=== PATIENT | female | born 1970 | race Caucasian/White ===

== ENCOUNTER → 2019-09-14 | Outpatient (CLI) | payer OTHER ==
[~2019-09-14] MED LIST: ACET500 PO; ALBU90OI; ALBU90OI INH; ALPR1; ALPR1 PO; AMIT50; AMLO10 PO; ARIP10; ARIP10 PO; AZIT250 PO; BELPHEER; BUPR75; CHLO10 PO; CLON.1; CLON.1 PO; CODGUAEL PO; CRUTCH4 USE; Crutch1 EACH MISC; DICY20; DIPATR; DULO30 PO; DULO60; DULO60 PO; ESCI10; ESCI20; ESCI20 PO; ESTR.625; ESTR.9 PO; ESTRADIOL PO; FISH1000 PO; FLUO20; FURO20; GABA300; GLYCOLAX; HYDACE10B; HYDACE10B PO; HYDACE5; HYDACE5 PO; HYDACE5325; HYDACE5325 PO; HYOS.125 SL; IBUP800 PO; LOPE2C; LORA1; LORA1 PO; MARIJUANA INH; METO25ER PO; METO5A; MORP15ER; O; ONDA4; ONDA4ODT MM; ONDA8 PO; ONDA8ODT MM; OXYACE10; OXYACE5T PO; OXYACE7.5T PO; OXYC20ER; OXYC20ER PO; PARO20 PO; PHENA100 PO; PHENA200 PO; POTASSIUM PO; PROC10; PROC5; PROC5 PO; PROM25; PROM25 PO; PROM50S; Percocet 5-3251 EACH PO; QUET200 PO; QUET25 PO; QUET300 PO; RANI150; RXHYDACE PO; TRAM50; TRAM50 PO; TRIHYD253B; TRIHYD253B PO; Zofran Odt4 MG SL; [UNRECOGNIZED DRUG - OTHER] PO; [UNRECOGNIZED DRUG - REMARK]
[2019-09-18 14:11] LABS: HPV 16 Negative (Negative); HPV 18 Negative (Negative); HPV OTHER HR TYPES Negative (Negative)
== END | disposition home or self-care (01) ==
LOC: LAB 10:40 → LAB SHORT 10:40
PROVIDERS: Obstetrics & Gynecology
DX: Z01.419 Encounter for gynecological examination (general) (routine) without abnormal findings (principal)
CPT/HCPCS: 87624; G0123

== ENCOUNTER 2022-04-20 08:33 | Day surgery (SDC) | payer OTHER ==
[~2022-04-20] VITALS: Ht 170.2 cm; Wt 107.6 kg
[2022-04-20] MEDS ORDERED: CEPH500 PO (09:21)
--- NOTE | 2022-04-20 09:40 | NUR ---
Ambulatory in Day Surgery History, Chart, Medications and Allergies reviewed before start of procedure.Patient confirms NPO status and agrees with scheduled surgery. Patient states colon prep results clear.PT STATES SHE THREW UP THROUGHOUT HER PREP.TOLERATED THE 0200 DOSE OF PREP. Lungs clear T/O to Auscultation. Patient States Post-Procedure ride home has been arranged WITH DAUGHTER.
--- NOTE | 2022-04-20 10:07 | NUR ---
04/20/22 [place] Wall HISTORY, CHART, MEDICATIONS AND ALLERGIES REVIEWED BEFORE START OF PROCEDURE. PATIENT CONFIRMS NPO STATUS AND AGREES WITH SCHEDULED PROCEDURE. 3-LEAD EKG REVIEWED WITH PHYSICIAN PRIOR TO START OF PROCEDURE. MONITOR INTACT WITH CONTINUOUS PULSE OXIMETRY,CAPNOGRAPHY, 3-LEAD EKG, INTERMITTENT BP. SUPPLEMENTAL O2 TO BE TITRATED THROUGHOUT PROCEDURE TO MAINTAIN O2 SATURATION ABOVE 90%. PATIENT DETERMINED TO BE ASA APPROPRIATE FOR PROPOFOL SEDATION PRIOR TO START OF PROCEDURE BY DR. BOWMAN.
== END 2022-04-20 23:31 | disposition home or self-care (01) ==
LOC: ORSCMMR 08:33 → ORD 09:30 → ORSCMMR 23:31
PROVIDERS: Internal Medicine Gastroenterology
PROC: 0DBM8ZX Excision of Descending Colon, Via Natural or Artificial Opening Endoscopic, Diagnostic (ICD-10-PCS; principal; 2022-04-20 09:30)
PROC: 0DBE8ZX Excision of Large Intestine, Via Natural or Artificial Opening Endoscopic, Diagnostic (ICD-10-PCS; principal; 2022-04-20 09:30)
DX: Z12.11 Encounter for screening for malignant neoplasm of colon (principal); D12.4 Benign neoplasm of descending colon; K64.4 Residual hemorrhoidal skin tags; K52.9 Noninfective gastroenteritis and colitis, unspecified; F32.A Depression, unspecified; F41.9 Anxiety disorder, unspecified; I10 Essential (primary) hypertension; Z79.899 Other long term (current) drug therapy
CPT/HCPCS: 88305; J2250; J2704; J7120